=== PATIENT | male | born 1985 ===

== ENCOUNTER → 2020-08-20 06:56 | Outpatient (CLI) | payer OTHER | END | disposition home or self-care (01) | LOC: LAB 06:56 | PROVIDERS: ATTEND Urology | DX: I47.9 Paroxysmal tachycardia, unspecified (principal) ==

== ENCOUNTER → 2020-10-11 | Outpatient (CLI) | payer OTHER | END | disposition home or self-care (01) | LOC: TOM 10:24 | DX: L92.8 Other granulomatous disorders of the skin and subcutaneous tissue (principal); I20.8 Other forms of angina pectoris; R00.2 Palpitations ==